=== PATIENT | female | born 1950 | race Asian ===

== ENCOUNTER 2018-11-05 07:02 | Emergency (ER) | payer BC ==
[2018-11-05 07:19] VITALS: BP 135/60
--- NOTE | 2018-11-05 07:21 | UC ---
Back Pain HPI - HPI Summary HPI Summary: 68 yo female with upper back pain which has been constant since yesterday AM. She describes the pain as squeezing and feeling like she is carrying a heavy wt on her shoulders Had similar but less severe pain about 2 weeks ago that lasted for a few days Chest feels a "little tight" No abd pain no UTI symptoms no URI symptoms no n/v/d No neck pain pain better laying down worse when upright - History of Current Complaint Stated Complaint: BACK PAIN Hx Obtained From: Patient Onset/Duration: Gradual Onset, Lasting Hours Timing: Constant Severity Initially: Moderate Severity Currently: Severe Pain Intensity: 8 Pain Scale Used: 0-10 Numeric Back Pain: Is Diffuse Character: Throbbing, Spasmodic Aggravating Factor(s): Nothing Alleviating Factor(s): Position Associated Signs And Symptoms: Positive: Negative Full Body (No Head): 1 - pain - Allergies/Home Medications Allergies/Adverse Reactions: Allergies Allergy/AdvReac Type Severity Reaction Status Date / Time No Known Allergies Allergy Verified 11/05/18 07:19 Home Medications: Home Medications Blood Pressure Medication 11/05/18 [History] Cholesterol Medication 11/05/18 [History] Diabetes Medication 11/05/18 [History] PMH/Surg Hx/FS Hx/Imm Hx Previously Healthy: Yes Endocrine History: Diabetes Cardiovascular History: Hypertension - Family History Known Family History: Positive: Hypertension Review of Systems All Other Systems Reviewed And Are Negative: Yes Constitutional: Positive: Negative Skin: Positive: Negative Eyes: Positive: Negative ENT: Positive: Negative Respiratory: Positive: Negative Cardiovascular: Positive: Negative Gastrointestinal: Positive: Negative Genitourinary: Positive: Negative Motor: Positive: Negative Neurovascular: Positive: Negative Musculoskeletal: Positive: Myalgia Neurological: Positive: Negative Psychological: Positive: Negative Diagnostics - Radiology No standard instances Radiology Interpretation Completed By: Radiologist Summary of Radiographic Findings: CXR mild cardiolmegaly, TS- mild DDD - EKG Cardiac Rate: NL Cardiac Rhythm: Sinus: Normal Ectopy: None ST Segment: Normal Back Pain Course/Dx - Differential Dx/Diagnosis Provider Diagnosis: Thoracic myofascial strain Discharge - Sign-Out/Discharge Documenting (check all that apply): Patient Departure All imaging exams completed and their final reports reviewed: Yes - Discharge Plan Condition: Stable Disposition: HOME Prescriptions: Cyclobenzaprine (NF) [Cyclobenzaprine 5 MG (NF)] 5 mg PO TID PRN #21 tab PRN Reason: Spasms Naproxen [Naprosyn 500 mg tab] 500 mg PO BID PRN #20 tablet PRN Reason: Pain Patient Education Materials: Thoracic Pain (ED) Referrals: Yamilet Damon MD [Primary Care Provider] - 1 Week - Billing Disposition and Condition Condition: STABLE Disposition: Home
[2018-11-05] MEDS ORDERED: Ketorolac INJ* 30 MG/ML 1 ML VIAL IM ONE (07:31)
== END 2018-11-05 08:55 | disposition home or self-care (01) ==
LOC: UCEAST 07:02
DX: S29.012A Strain of muscle and tendon of back wall of thorax, initial encounter (principal); X58.XXXA Exposure to other specified factors, initial encounter; Y92.9 Unspecified place or not applicable; E11.9 Type 2 diabetes mellitus without complications; I10 Essential (primary) hypertension
CPT/HCPCS: 71046; 72070; 93005; 96372; 99212; G0463; J1885